=== PATIENT | female | born 1960 | race Two or more races ===

== ENCOUNTER 2017-05-31 08:18 | Day surgery (SDC) | payer BC ==
[2017-05-31] VITALS (7 sets, daily range): BP systolic 96–127; BP diastolic 49–85
[~2017-05-31] VITALS: Ht 162.6 cm; Wt 52.2 kg
[2017-05-31] MEDS ORDERED: AMBIEN5 MG ORAL (08:48)
[2017-05-31] MEDS ORDERED: estradiol cream TOPIC (08:57)
[2017-05-31] MEDS ORDERED: [UNRECOGNIZED DRUG - OTHER] PO (08:57)
[2017-05-31] MEDS ORDERED: LR 1000ml ONE (10:00)
[2017-05-31] MEDS ORDERED: Lidocaine 1% MPF 10mg/ml 5ml ONE (10:00)
[2017-05-31] MEDS ORDERED: Propofol 10mg/ml 20ml IV ONE (10:00)
--- NOTE | 2017-05-31 10:13 | Short Stay Surgery H&P ---
History of Present Illness History of Present Illness Chief Complaint see H&P HPI Diana Self is a 57 year old female who was admitted on for Abdominal Pain Patient History Allergies: Coded Allergies: MORPHINE (Verified Allergy, Intermediate, rash , 05/31/17) PAST MEDICAL HISTORY: Past Surgeries: Social History: Medication History Scheduled [estradiol cream], Unknown Dose TOPIC DAILY, (Reported) [magnesium fizz], Unknown Dose PO DAILY, (Reported) Scheduled PRN Zolpidem Tartrate* (Ambien*), 5 MG ORAL BEDTIME PRN for Insomnia, (Reported) Physical Exam Vital Signs Last Vital Signs Date Time Temp Pulse Resp B/P Pulse Ox O2 Delivery O2 Flow Rate FiO2 05/31/17 08:49 98.8 62 20 114/74 99 Room Air Plan Attestation Are the patient's medical conditions optimized for surgery? SHONNA BAILEY May 31, 2017 10:13
--- NOTE | 2017-05-31 10:13 | Pre-Procedure Note/Attestation ---
Pre-Procedure Note/Attestation Complete Prior to Procedure Planned Procedure: not applicable Procedure Narrative: egd/colon Indications for Procedure Pre-Operative Diagnosis: GERD, Screening Attestation I attest that I discussed the nature of the procedure; its benefits; risks and complications; and alternatives (and the risks and benefits of such alternatives ), prior to the procedure, with the patient (or the patient's legal c s s representative). I attest that, if there was a reasonable possibility of needing a blood transfusion, the patient (or the patient's legal c s s representative) was given the [facility] standardized written summary, pursuant to the Enrrique Jonathan Blood Safety Act ([place] Health and Safety Code # 1645, as amended). I attest that I re-evaluated the patient just prior to the surgery and that there has been no change in the patient's H&P, except as documented below: SHONNA BAILEY May 31, 2017 10:13
--- NOTE | 2017-05-31 11:03 | Immediate Post-Op Evaluation ---
Immediate Post-Op Evalulation Immediate Post-Op Evalulation Procedure: EGD/colonoscopy Date of Evaluation: May 31, 2017 Time of Evaluation: 11:03 IV Fluids: 500 Blood Pressure Systolic: 98 Blood Pressure Diastolic: 80 Pulse Rate: 71 Respiratory Rate: 14 O2 Sat by Pulse Oximetry: 100 Temperature (Fahrenheit): 99.3 Nausea: No Vomiting: No Complications none Patient Status: awake, reacts, patent Hydration Status: adequate Drug: none TARRILLION,ANN MARIE ADMINISTRATIVE COORDINATOR May 31, 2017 11:03
--- NOTE | 2017-05-31 11:05 | Anethesia Preoperative Eval ---
Anesthesia Pre-op PMH/ROS General Date of Evaluation: May 31, 2017 Time of Evaluation: 11:04 Anesthesiologist: alex ASA Score: ASA 2 Mallampati Score Class I : Soft palate, uvula, fauces, pillars visible Class II: Soft palate, uvula, fauces visible Class III: Soft palate, base of uvula visible Class IV: Only hard plate visible Mallampati Classification: Class II Surgeon: Elayne Diagnosis: GERD Surgical Procedure: EGD/Colonoscopy Anesthesia History: none Family History: no anesthesia problems Allergies: Coded Allergies: MORPHINE (Verified Allergy, Intermediate, rash , 05/31/17) Medications: see eMAR Past Medical History Cardiovascular: Denies: CAD, HTN, MA, arrhythmia, other, valve dz Pulmonary: Denies: COPD, BARRERA, asthma, other Gastrointestinal/Genitourinary: Reports: GERD Neurologic/Psychiatric: Denies: CVA, TIA, dementia, depression/anxiety, other Endocrine: Denies: DM, hypothyroidism, other, steroids HEENT: Denies: [place] (L), [place] (R), cataract (L), cataract (R), glaucoma, other Hematology/Immune: Reports: anemia, other - hx of breast ca Musculoskeletal/Integumentary: Denies: DDD, DJD, OA, RA, edema, other Anesthesia Pre-op Phys. Exam Physician Exam Last Vital Signs Date Time Temp Pulse Resp B/P Pulse Ox O2 Delivery O2 Flow Rate FiO2 05/31/17 08:49 98.8 62 20 114/74 99 Room Air Constitutional: NAD Neurologic: CN 2-12 intact Cardiovascular: RRR Respiratory: CTA Gastrointestinal: S/NT/ND Airway Exam Mallampati Score: Class II MO: full ROM: full Dentures: no lower, no upper Anesthesia Pre-op A/P Studies Pre-op Studies: EKG - sr Risk Assessment & Plan Plan: mac Status Change Before Surgery: No Pre-Antibiotics Drug: none ANN MARIE THRASHER MEASUREMENT AND SENSING TECHNICIAN May 31, 2017 11:05
--- NOTE | 2017-05-31 11:13 | 48 Hour Post Anesthesia Eval ---
Post Anesthesia Evaluation Procedure: EGD/colonoscopy Date of Evaluation: May 31, 2017 Time of Evaluation: 11:13 Blood Pressure Systolic: 113 0: 70 Pulse Rate: 69 Respiratory Rate: 14 O2 Sat by Pulse Oximetry: 100 Airway: patent Nausea: No Vomiting: No Hydration Status: adequate Cardiopulmonary Status: stable Mental Status/LOC: patient returned to baseline Post-Anesthesia Complications: none Follow-up care needed: N/A ANN MARIE THRASHER CRNA May 31, 2017 11:13
--- NOTE | 2017-05-31 17:15 | Operative Note - Dictated ---
DATE OF OPERATION: 05/31/2017 GASTROENTEROLOGY PROCEDURE NOTE PROCEDURE: Upper gastrointestinal endoscopy with biopsy as well as colonoscopy. SURGEON: Sherri Plata M.D. ANESTHESIA: Please see the separate anesthesiologist notes for details. PRE-ENDOSCOPIC DIAGNOSES: Symptoms of gastroesophageal reflux, anemia, and need for screening colonoscopy. POST-ENDOSCOPIC DIAGNOSES: 1. Normal upper endoscopy, status post biopsy of the duodenum, antrum, and lower esophagus. 2. Normal colonoscopy. 3. A hemorrhoidal skin tag could be felt on digital examination as well as retroflexed view of the rectum. PROCEDURE: The procedure, its risks, indications, alternatives, and possible complications including, but not limited to bleeding, infection, perforation, , and anesthesia complications were explained to the patient and informed consent was obtained. The patient was then sedated in the left lateral decubitus position. A diagnostic upper endoscope was introduced into oropharynx and advanced to the duodenum. The endoscope was then gradually withdrawn and mucosa examined carefully. Examination of the upper gastric mucosa did not reveal any abnormalities. Biopsies of the duodenum, antrum, and lower esophagus were sent to pathology for review. Then the patient's table was turned around and rectal exam was done and the colonoscope was introduced into the rectum and advanced to the cecum. The cecum was identified by the appearance of the ileocecal valve and appendiceal orifice. The colonoscope was then gradually withdrawn and the mucosa examined carefully. The examination of the colonic mucosa did not reveal any polyps or masses. Retroflexed view of the rectum was normal. Digital examination showed a 5 mm skin tag in the hemorrhoidal region. The colonoscope was removed and the patient was sent to recovery in good condition. COMPLICATIONS: None. RECOMMENDATIONS: 1. Resume oral diet. 2. High fiber intake. 3. Follow up biopsy results. 4. Outpatient followup. Sherri Plata M.D. DR: JUAN A JOB#: [id number] CC:
== END 2017-05-31 12:10 | disposition home or self-care (01) ==
LOC: GAS 08:18
DX: Z12.11 Encounter for screening for malignant neoplasm of colon (principal); K64.4 Residual hemorrhoidal skin tags; D64.9 Anemia, unspecified; K21.9 Gastro-esophageal reflux disease without esophagitis; K29.50 Unspecified chronic gastritis without bleeding; G43.909 Migraine, unspecified, not intractable, without status migrainosus; E06.3 Autoimmune thyroiditis; Z87.891 Personal history of nicotine dependence; Z85.3 Personal history of malignant neoplasm of breast; Z88.5 Allergy status to narcotic agent
CPT/HCPCS: 43239; 45378; J2704; J7120; 94003; 94150